=== PATIENT | male | born 1970 | race Caucasian/White ===

== ENCOUNTER → 2023-11-03 06:30 | Day surgery (SDC) | payer OTHER, SELFPAY | LOC: GI 06:30 | PROVIDERS: ATTENDING PHYSICIAN Surgery | DX: R12 Heartburn (principal); R93.3 Abnormal findings on diagnostic imaging of other parts of digestive tract; K44.9 Diaphragmatic hernia without obstruction or gangrene; K22.89 Other specified disease of esophagus | CPT/HCPCS: 43239; 88305 ==

== ENCOUNTER 2023-12-22 17:00 | Inpatient (IN) | payer OTHER, SELFPAY ==
--- NOTE | 2023-12-11 11:23 | CM ---
Patient is scheduled for a laparoscopic repair paraesophageal hernia with fundoplication on 12/22/23. Spoke with patient prior to surgery via telephone to complete case management assessment and assess for discharge planning needs. Patient reports
that he lives alone in a one story home. There are no steps to enter. He currently functions independently. He has no DME and has never had VN services. He has prescription drug coverage and uses [facility].
PCP is Pilo Lopez
Discussed discharge plans. Patient plans to return home at discharge. He states that if he needs assistance he will go to his ex-'s home in [place]. He has no discharge planning concerns at this time and does not anticipate need for VN.
[2023-12-22] VITALS (15 sets, daily range): BP systolic 88–156; BP diastolic 57–98
[2023-12-22] MEDS: TYLENOL 1000 MG PO (09:00)
[2023-12-22] MEDS: EMEND 40 MG PO (09:00)
[2023-12-22] MEDS: NORMOSOL-R 1000 IV ×2 (09:00→15:58)
[2023-12-22] MEDS: HEPARIN 5000 UNITS SC (09:01)
--- NOTE | 2023-12-22 09:47 | W.SUR.PREOP ---
Pre-Operative Surgical Note
-
I have examined this patient prior to the performance of the scheduled procedure.
The patient's condition is unchanged from the time of the current History and
Physical and the patient is able to undergo the scheduled procedure.
--- NOTE | 2023-12-22 14:41 | W.IMMPOSTOP ---
Surgical Immed Post Op Note
-
Primary Surgeon: Jun Watters MD
Assisting Surgeon: Lee Herrmann MD
Pre-op Diagnosis: Hiatal hernia (type III -paraesophageal)
Post-op Diagnosis: Same
Procedure Performed:
1. Laparoscopic paraesophageal hernia repair with toupet fundoplication
2. EGD
Anesthesia Type: General
Specimen / Cultures: None
Estimated Blood Loss: 7 cc
Complications: None
Operative Findings: 5 cm hiatal hernia reduced. Sac excised. Greater than 3 cm intra-abdominal esophageal length achieved. Anterior and posterior vagus nerves identified and preserved. The crural defect was approximated using two
Markell-pledgeted 0 silk sutures and one non-pledgeted 0 silk suture. A posterior 270 fundoplication was performed after ligation of the short gastrics using six 2-0 silk sutures. An EGD was performed which identified some mild gastritis in the
antrum and a well situated fundoplication.
POST OP PLAN:
Imaging: None
Labs: Routine AM
Diet: Clears.
Analgesia: Liquid Tylenol 650mg q6 Kofi, liquid Delma 5mg q6 PRN, IV Dilaudid 0.5mg q2h PRN
Neuro/vascular checks: q4h
AC/AP: Hold Therapeutic AC, Ok for DVT PPx
Activity: Ad Teri
Wound/Incisions/Drains: Routine
Abx: None
Dispo: RNF, anticipate discharge home tomorrow.
[2023-12-22] MEDS: DILAUDID 0.5 MG IV (14:58)
[2023-12-22] MEDS: DILAUDID 0.25 MG IV (15:19)
[2023-12-22] MEDS: TORADOL 10 MG IV ×2 (15:19→20:56)
[2023-12-22] MEDS: ZOFRAN 4 MG IV (17:15)
--- NOTE | 2023-12-22 17:34 | PTCARENOTE ---
pt admitted to room 2119 from the PACU at 1650. pt arrived via bed, awake and alert. oriented to room, call capellan, bed controls and plan of care with verbalized understanding. admission database and assessment completed as documented. c/o nausea
on arrival and medicated w/IV Zofran per DEC. pt also provided mouth swabs. will observe.
[2023-12-22] MEDS: TYLENOL ORAL SOLUTION PO (18:30)
[2023-12-22 19:22] LABS: Hematocrit 35.4 % (39.0-52.0); Hemoglobin 10.7 g/dL (13.0-18.0); Mean Corp Hgb Conc. 30.2 g/dL (33.0-37.0); Mean Corpuscular Hgb 24.4 pg (27.0-31.0); Mean Corpuscular Volume 80.6 fL (80.0-94.0); Mean Platelet Volume 10.2 fL (7.4-10.4); Platelet Count 299 10^3/uL (130-400); Red Blood Cell Count 4.39 10^6/uL (4.70-6.10); Red Cell Dist. Width 14.6 % (11.5-14.5); White Blood Cell Count 19.5 10^3/uL (4.8-10.8)
[2023-12-22] MEDS: LOVENOX 40 MG SC (20:55)
[2023-12-22] MEDS: LOPRESSOR 12.5 MG PO (20:55)
--- NOTE | 2023-12-22 20:55 | PTCARENOTE ---
Received telephone call from Dr. Watters after reading EKG results; confirmed current BP 126/89, HR 118; Dr. Watters requested that I confirm with patient his home medication Metoprolol 12.5mg daily and if he took dose this a.m.; patient confirmed
dose and taken at 06:00; informed Dr. Watters and received a telephone order for an additional Metoprolol 12.5mg PO x1 now; written order sent to pharmacy; Metoprolol 12.5 administered at 20:55.
[2023-12-23] MEDS: TYLENOL ORAL SOLUTION 650 MG PO ×5 (00:03→23:03)
[2023-12-23 03:28] VITALS: BP 111/76
[2023-12-23] MEDS: TORADOL 10 MG IV ×4 (03:37→20:56)
[2023-12-23 05:13] LABS: % Basophils 0.1 % (0-2); % Eosinophils 0.1 % (0-6); % Immature Granulocytes 0.5 % (0-0.5); % Lymphocytes 10.8 % (20.5-51.1); % Monocytes 8.7 % (1.7-9.3); % Neutrophils 79.8 % (42.2-75.2); Absolute Immature Granulocytes 0.1 10^3/uL (0-0.05); Absolute Lymphocytes 1.6 10^3/uL (1.2-3.4); Absolute Monocytes 1.3 10^3/uL (0.1-0.6); Absolute Neutrophils 11.7 10^3/uL (1.4-6.5); Hematocrit 33.5 % (39.0-52.0); Hemoglobin 10.1 g/dL (13.0-18.0); Mean Corp Hgb Conc. 30.1 g/dL (33.0-37.0); Mean Corpuscular Hgb 24.5 pg (27.0-31.0); Mean Corpuscular Volume 81.1 fL (80.0-94.0); Mean Platelet Volume 10.6 fL (7.4-10.4); Nucleated Red Blood Cells % 0 % (-); Platelet Count 282 10^3/uL (130-400); Red Blood Cell Count 4.13 10^6/uL (4.70-6.10); Red Cell Dist. Width 14.9 % (11.5-14.5); White Blood Cell Count 14.6 10^3/uL (4.8-10.8)
[2023-12-23 05:44] LABS: Blood Urea Nitrogen 31 mg/dl (9-20); Calcium 8.2 mg/dl (8.4-10.2); Carbon Dioxide 28 mmol/L (22-30); Chloride 96 mmol/L (98-107); Estimated Creatinine Clearance 98 ml/min; Glucose 117 mg/dl (70-99); Potassium 4.2 mmol/L (3.5-5.1); Sodium 136 mmol/L (135-145); eGFR > 60.00
[2023-12-23] MEDS: NORMOSOL-R 1000 IV ×2 (05:57→17:45)
[2023-12-23 07:40] VITALS: BP 111/76
[2023-12-23] MEDS: LOPRESSOR 12.5 MG PO (08:56)
--- NOTE | 2023-12-23 10:04 | CM ---
Reviewed the chart notes and spoke with the patient at the bedside. The patient resides in a one story home with one step to enter. The patient reports no DME/VN/SNF in the past. The patient confirmed his pharmacy of choice is [facility]
[place]. CM continues to be available to patient/family and is monitoring medical plan for needs at discharge.
Plan: Discharge to home when medically stable. No needs anticipated.
[2023-12-23 10:50] VITALS: BP 106/74
--- NOTE | 2023-12-23 14:15 | W.PN.GS2 ---
Today's Communication / Plan
-
Full code diet.
Anticipate discharge home tomorrow.
Assessment / Plan
-
This is a 53-year-old male postoperative day 1 from a laparoscopic paraesophageal hernia repair and EGD. Doing well, expected postoperative course.
Will advance to a full liquid diet which he will be on for 1 week.
Continue current pain and antinausea regimen.
Given current degree of nausea anticipate home tomorrow.
Time Spent
Total Time Spent with Patient (in minutes): 20
Subjective Data
-
Date of Service: December 23, 2023
Interval Events:
No acute events overnight. Slept well. Pain Controlled. Endorses some nausea but no vomiting, +bowel function. Tolerating diet.
Objective Data
-
Intake and Output
12/22/23 12/23/23 12/24/23
06:59 06:59 06:59
Intake Total 780 / 780
Output Total 910 / 910
Balance -130 / -130
Intake:
Oral fluids 480 / 480
IV fluids (Total) 300 / 300
normosol 300 / 300
IV piggybacks 0 / 0
Output:
Urine, Baer 610 / 610
Urine, Voided 300 / 300
Vital Signs
Temp Pulse Resp BP Pulse Ox
98.3 F 102 18 106/74 93
12/23/23 10:50 12/23/23 10:50 12/23/23 10:50 12/23/23 10:50 12/23/23 10:50
Lab Results
12/23/23 03:39
12/23/23 03:39
Calcium 8.2 mg/dl (8.4-10.2) L 12/23/23 03:39
Physical Exam
-
GENERAL/NEURO: Awake, Alert, no distress
CHEST: Unlabored breathing on RA
ABDOMEN: Soft, Non-Tender, Non-Distended, incisions clean dry and intact.
[2023-12-23 16:12] VITALS: BP 127/80
[2023-12-23] MEDS: LOVENOX 40 MG SC (17:33)
[2023-12-23] MEDS: ZOFRAN 4 MG IV ×2 (17:35→23:03)
[2023-12-23 19:45] VITALS: BP 133/87
--- NOTE | 2023-12-23 20:00 | PTCARENOTE ---
patient received in bed, AAOx3, complaints of abdominal 'bloating'. SInus Tachycardia on monitor, afebrile, blood pressure as documented. No edema noted. Lungs diminished bilaterally, fine crackles bibasilar, pulse ox 93% on room air. IS
encouraged. Abdomen softly distended, with positive bowel sounds, + flatus. Tolerating 50% of full liquid diet. Voiding without difficulty. Ambulation encouraged. both PIVs flushed and patent with IVf infusing as ordered. Plan of care
discussed.
[2023-12-23 23:30] VITALS: BP 119/78
[2023-12-24] VITALS (7 sets, daily range): BP systolic 113–152; BP diastolic 70–91
--- NOTE | 2023-12-24 03:19 | W.PN.UPDATE ---
Update Note
Progress Note Update
Patient complained of generalized abdominal pain rated 7/10 of pain scale described as aching, patient had a small BM yesterday morning. One exam, abdomen is distended, soft, slightly tender to touch only where is the incision sites and hypoactive
bowel sound on exam. vital signs within normal limit.
Abdominal x-ray ordered.
[2023-12-24] MEDS: MYLICON 80 MG PO ×2 (03:21→10:25)
[2023-12-24] MEDS: DILAUDID 0.5 MG IV ×2 (03:30→17:44)
--- NOTE | 2023-12-24 03:38 | PTCARENOTE ---
Patient continues to complain of 'bloating' and 'pressure' in abdomen. Abdominal exam unchanged- softly distended, tender to palpation at incision sites. Continues to pass flatus with each void. Notified house INTERMEDIATE CARD TENDER, orders received, medicated with
prn dilaudid for 7/10 pain.
[2023-12-24] MEDS: ZOFRAN 4 MG IV ×4 (05:53→23:25)
[2023-12-24] MEDS: TYLENOL ORAL SOLUTION 650 MG PO (06:00)
[2023-12-24] MEDS: NORMOSOL-R 1000 IV (06:01)
[2023-12-24 06:46] LABS: % Basophils 0.5 % (0-2); % Immature Granulocytes 0.5 % (0-0.5); % Lymphocytes 19.9 % (20.5-51.1); % Monocytes 7.4 % (1.7-9.3); % Neutrophils 65.7 % (42.2-75.2); Absolute Basophils 0.1 10^3/uL (0-0.2); Absolute Eosinophils 0.6 10^3/uL (0-0.7); Absolute Immature Granulocytes 0.1 10^3/uL (0-0.05); Absolute Monocytes 0.8 10^3/uL (0.1-0.6); Absolute Neutrophils 6.6 10^3/uL (1.4-6.5); Hematocrit 29.7 % (39.0-52.0); Mean Corp Hgb Conc. 30.3 g/dL (33.0-37.0); Mean Corpuscular Hgb 24.7 pg (27.0-31.0); Mean Corpuscular Volume 81.4 fL (80.0-94.0); Mean Platelet Volume 11.1 fL (7.4-10.4); Nucleated Red Blood Cells % 0 % (-); Platelet Count 218 10^3/uL (130-400); Red Blood Cell Count 3.65 10^6/uL (4.70-6.10); Red Cell Dist. Width 14.8 % (11.5-14.5); White Blood Cell Count 10.1 10^3/uL (4.8-10.8)
[2023-12-24] MEDS: LOPRESSOR 12.5 MG PO (08:30)
[2023-12-24] MEDS: ROXICODONE ORAL SOLUTION 5 MG PO (08:34)
--- NOTE | 2023-12-24 08:56 | W.PN.GS2 ---
Today's Communication / Plan
-
`
Assessment / Plan
-
Assessment: 53-year-old male POD#2 from a laparoscopic paraesophageal hernia repair with toupee fundo and EGD.
AF-stable sinus tachy 100-110 since OR (preop -98)
WBC normalized
suspect mild ileus but abx xray overnight without large degree of gastric or SB distention
Plan: continue multimodal pain control options
encourage OOBTC and ambulation/IS use
full liquid diet for comfort - cautioned to go slow and avoid if nausea or worsening distention
continue IVFs
metoprolol
Subjective Data
-
Date of Service: December 24, 2023
pt seen and examined
c/o bloating/distention/fullness
pain at surgical sites
not passing much flatus yet
Objective Data
-
Intake and Output
12/23/23 12/24/23 12/25/23
06:59 06:59 06:59
Intake Total 780 / 780 1440 / 1440
Output Total 910 / 910
Balance -130 / -130 1440 / 1440
Intake:
Oral fluids 480 / 480 1440 / 1440
IV fluids (Total) 300 / 300
normosol 300 / 300
IV piggybacks 0 / 0
Output:
Urine, Baer 610 / 610
Urine, Voided 300 / 300
Other:
Number of approximated SMALL 1
amounts of urine
Number of approximated MODERATE 2
amounts of urine
Vital Signs
Temp Pulse Resp BP Pulse Ox
98.3 F 108 18 139/88 99
12/24/23 07:55 12/24/23 08:30 12/24/23 07:55 12/24/23 08:30 12/24/23 07:55
Lab Results
12/24/23 05:00
12/23/23 03:39
Calcium 8.2 mg/dl (8.4-10.2) L 12/23/23 03:39
Physical Exam
-
NAD AAOx3
ABD: softly protuberant but not overly distended, not much tympany and no LUQ succussion splash
TTP at incision sites, incisions with glue dressings
[2023-12-24] MEDS: TYLENOL ORAL SOLUTION PO (12:41)
[2023-12-24] MEDS: D5/0.9% SODIUM CHLORIDE 1000 IV ×2 (13:38→23:38)
--- NOTE | 2023-12-24 13:53 | PTCARENOTE ---
Pt with 11 beat run Vtach, asymptomatic, VSS. Dr Herrmann notified. Care ongoing at this time.
[2023-12-24] MEDS: LOPRESSOR 55 MG IV ×2 (14:03→20:20)
[2023-12-24 16:09] LABS: Urine Albumin Negative (Neg - Trace); Urine Bilirubin Negative (Negative); Urine Character Clear (Clear); Urine Color Yellow; Urine Glucose Negative (Negative); Urine Ketone Trace (Negative); Urine Leukocyte Negative (Negative); Urine Nitrite Negative (Negative); Urine Occult Blood Negative (Negative); Urine Specific Gravity 1.015 (<1.030); Urine Urobilinogen Negative (Neg - 1+)
--- NOTE | 2023-12-24 16:24 | CM ---
met with patient at bedside,pod #2 sp lap hernia repair,having less pain after he passed some gas,ambulating,starting full liquids,tentative dc home with no need tomorrow.
Plan:home with no needs..
[2023-12-24] MEDS: LOVENOX 40 MG SC (17:42)
[2023-12-24] MEDS: OFIRMEV 100 IV ×2 (17:45→23:04)
[2023-12-25] MEDS: LOPRESSOR 55 MG IV ×4 (02:16→19:54)
[2023-12-25 02:46] VITALS: BP 125/82
[2023-12-25] MEDS: OFIRMEV 100 IV ×2 (04:06→10:51)
[2023-12-25] MEDS: ZOFRAN 4 MG IV ×4 (05:48→23:19)
[2023-12-25 06:25] LABS: Hematocrit 30.1 % (39.0-52.0); Hemoglobin 8.9 g/dL (13.0-18.0); Mean Corp Hgb Conc. 29.6 g/dL (33.0-37.0); Mean Corpuscular Hgb 24.2 pg (27.0-31.0); Mean Corpuscular Volume 81.8 fL (80.0-94.0); Mean Platelet Volume 10.7 fL (7.4-10.4); Platelet Count 210 10^3/uL (130-400); Red Blood Cell Count 3.68 10^6/uL (4.70-6.10); Red Cell Dist. Width 14.7 % (11.5-14.5); White Blood Cell Count 11.6 10^3/uL (4.8-10.8)
[2023-12-25 06:44] LABS: Blood Urea Nitrogen 15 mg/dl (9-20); Calcium 8.1 mg/dl (8.4-10.2); Carbon Dioxide 27 mmol/L (22-30); Chloride 104 mmol/L (98-107); Estimated Creatinine Clearance > 125 ml/min; Glucose 98 mg/dl (70-99); Potassium 3.9 mmol/L (3.5-5.1); Sodium 136 mmol/L (135-145); eGFR > 60.00
[2023-12-25 07:16] VITALS: BP 124/75
--- NOTE | 2023-12-25 07:50 | W.PN.GS2 ---
Addendum entered and electronically signed by Jun Watters MD 12/25/23 10:46:
I saw and examined the patient independently.
The Mastic Floor Layer's note was reviewed and I agree with the note, assessment and plan except where noted below.
Comment: 53-year-old male postoperative day 3 from a laparoscopic paraesophageal hernia repair with toupet fundoplication/EGD with nausea and 'bloating sensation'. Persistent sinus tachycardia.
Pain control, avoid narcotics.
Simethicone ordered.
Upper GI today with small bowel follow-through Omnipaque.
Will consult cards for assistance in management of his sinus tachycardia (he does take a 12.5 mg metoprolol once daily at baseline)
Okay to resume full liquid diet pending upper GI results.
Original Note:
Today's Communication / Plan
-
continue NPO
Assessment / Plan
-
Assessment: 53-year-old male POD#3 from a laparoscopic paraesophageal hernia repair with toupee fundo and EGD.
AF-stable sinus tachy 100-110 since OR (preop -98)
WBC normalized
12/23 abx xray without large degree of gastric or SB distention
suspect mild ileus
Plan: continue multimodal pain control options
encourage OOBTC and ambulation/IS use
NPO
continue IVFs
continue IV metoprolol
scheduled zofran with prn compazine for nausea
lovenox 40mg sq for vte ppx
Subjective Data
-
Date of Service: December 25, 2023
Patient seen and examined at bedside. Denies significant discomfort. Nausea overnight, no vomiting. Passing some flatus, no BM as of yet.
Objective Data
-
Intake and Output
12/24/23 12/25/23 12/26/23
06:59 06:59 06:59
Intake Total 1440 / 1440 2190 / 2190
Balance 1440 / 1440 2189
Intake:
Oral fluids 1440 / 1440 560 / 560
IV fluids (Total) 1319
IV piggybacks 310 / 310
Other:
Number of approximated SMALL 1
amounts of urine
Number of approximated MODERATE 2 2
amounts of urine
Vital Signs
Temp Pulse Resp BP Pulse Ox
98.6 F 101 16 124/75 92
12/25/23 07:16 12/25/23 07:16 12/25/23 07:16 12/25/23 07:16 12/25/23 07:16
Lab Results
12/25/23 05:12
12/25/23 05:12
Calcium 8.1 mg/dl (8.4-10.2) L 12/25/23 05:12
Physical Exam
-
NAD AAOx3
ABD: softly protuberant, mild distention
TTP at incision sites, incisions with glue dressings
[2023-12-25] MEDS: D5/0.9% SODIUM CHLORIDE 1000 IV ×3 (09:10→23:50)
[2023-12-25] MEDS: MYLICON 80 MG PO ×3 (11:03→23:18)
[2023-12-25 12:00] VITALS: BP 156/106
--- NOTE | 2023-12-25 12:27 | OR.RPT ---
Operative Report
Operative Report
Patient Name: Kwabena Guillen
: 1970
Date of Operation: 12/22/2023
Preoperative Diagnosis: Hiatal Hernia (Type III)
Postoperative Diagnosis: Same
Procedure(s):
Laparoscopic Paraesophageal Hernia Repair with Toupet Fundoplication
EGD
Surgeon(s):
Dr. Watters
Transportation Lead(s):
Lee Herrmann MD
SUSAN Gupta
Anesthesia: General
Estimated Blood Loss: 7 cc
Urine Output: None
Drains/Lines/Implants: None
Specimens:
None
HPI/Surgical Indications:
This is a 53-year-old male who presented to our office with mild dysphagia, GERD and found to have a Type III Hiatal hernia on UGI, and EGD. Exam, labs and imaging are consistent with a symptomatic hiatal hernia. Risks/Benefits/Alternatives were
discussed at length, and the patient agreed to proceed with surgery.
Findings:
The patient was noted to have a 5 cm hiatal hernia. Sac excised. Greater than 3 cm intra-abdominal esophageal length achieved. Anterior and posterior vagus nerves identified and preserved. The crural defect was approximated using 2 interrupted
Markell-pledgeted 0 silk sutures and 1 interrupted non-pledgeted 0 silk suture. A posterior 270 fundoplication was performed after ligation of the short gastrics using six 2-0 silk sutures. An EGD was performed which identified a well situated
fundoplication.
Procedure Description:
The patient was brought to the Operating Room and GETA was induced. A ramirez catheter was placed and the patient was then placed in the supine, split-leg position, arms tucked, with all pressure-points padded. The abdomen was prepped and draped in
the usual sterile fashion and team time-out was performed confirming SCDs were on and functioning and that appropriate pre-operative antibiotics and DVT prophylaxis had been given. The abdomen was entered using a left subcostal Veress technique
followed by a left periumbilical 11 mm Optiview trochar roughly 13cm inferior to the xiphoid. Pneumoperitoneum to 15 mmHg pressure was obtained without difficulty and we confirmed that no injury had occurred during our entry. The patient was
positioned in steep reverse Trendelenberg. Three (3) 5mm trocars were then placed along the upper abdomen and an 11 mm trocar was placed in the left subcostal region. A triangular liver retractor was introduced through the right most lateral port
and used to elevate the left lobe of the liver. The hiatal hernia was readily visible with the proximal one quarter of the stomach herniated up in the chest, this was reduced into the abdomen. We then began working on the right alicia at '9 o'clock'
by opening up the pars flaccida no replaced left hepatic was identified. The peritoneal reflection line was identified and incised in the crural muscle fibers were identified. We then carried this dissection in a clockwise fashion to the '3
o'clock' position. We then returned back to the right alicia and carried our dissection down to the '6 o'clock' position. We then turned our attention to the short gastrics which were ligated using harmonic energy device. We carried this to the
diaphragm and carefully peeled the fundus off of the diaphragm. There we continued from her previous dissection at '3 o'clock' and worked inferiorly to the retroesophageal fat pad. A window was then created posterior to the esophagus and a Delavan
drain was wrapped around and tied with an Endoloop. While my assistant operator placed the esophagus on gentle traction I was able to complete our posterior dissection and the posterior vagus was identified. We then worked on obtaining good intra-abdominal
esophageal length using blunt dissection with the occasional short bursts of ultrasound cautery to divide the attachments of the esophagus from the surrounding tissues. Dr. Herrmann scrubbed in for this portion onwards of the case as no other
qualified assistant operator was available. The pleura on both sides as well as the anterior and posterior vagii were identified and preserved throughout the case. Once we were satisfied with our intra-abdominal esophageal length (greater than 3 cm) we
worked to approximate our crural defect using 2 interrupted Markell-pledgeted 0 silk sutures and 1 interrupted non-pledgeted 0 silk suture. Care was taken to ensure the pledgets lay on the lateral aspects of the crura and were not in contact with
the esophagus. Satisfied with our crural repair, the hernia sac was excised. During manipulation of the stomach, a small serosal tear was identified on the posterior wall of the stomach which was oversewn using a [id number] 2-0 silk suture.
The angle of His was identified in the fundus was passed posteriorly around the esophagus and a shoeshine maneuver was performed. A floppy, 2.5 cm posterior 270 degree fundoplication was performed using three (3) 2-0 silk sutures on each side of
the esophagus. Care was taken not to ensnare the anterior vagus nerve which was identified and preserved throughout its entire course. An EGD was then performed which demonstrated the wrap was in good position and the stomach was desufflated. The
liver tractor was removed and we confirmed no injury to the liver had occurred. The left upper quadrant periumbilical 11 mm port was closed with a single interrupted 0 PDS using a Kervin Mohr. The remaining ports were removed under
visualization and the pneumoperitoneum was evacuated. All trocar sites were closed at the skin level using 4-0 Monocryl followed by Dermabond. Overall, the patient tolerated the procedure well and was taken to the Recovery Room postoperatively in
stable condition.
I was the attending physician and performed the procedure with assistance from the PA above as well as Dr. Herrmann who was instrumental in providing tension counter tension, as well as tissue handling during the critical portions of the dissection.
He also performed the EGD scope while I assessed the stomach intraoperatively. I was present for all portions of the case.
Jun Watters MD
[2023-12-25] MEDS: PROTONIX 40 MG PO (13:06)
--- NOTE | 2023-12-25 13:49 | CON.CAR ---
Addendum entered and electronically signed by Forest Cason MD 12/25/23 15:09:
53 yo male with PMH of RBBB, HTN is admitted following hernia repair. We are consulted for tachycardia. Patient denies CP, palps. Exam with RRR, no murmurs, no edema.
Tele: brief NSVT 11 beats 12/23, 1343. EKG: NSR, RBBB.
Sinus tachycardia. Likely in setting of poor PO intake, pain.
NSVT. Replete K. Check echo. Continue IV lopressor, and transition to PO when able.
Original Note:
Consultation
Consultation Request
Date/Time Consultation Requested: 12/25/23 1213
Date/Time Consultation Performed: 12/25/23 1330
Requesting Provider: Fiorella Abreu
Performing Provider: Manisha ROMERO for Dr. Cason
Reason for Consultation: tachycardia
Medical History
-
Chief Complaint: hernia
History of Present Illness:
53 y/o male with hypertension, dyslipidemia, former tobacco, and RBBB who is here for management of his hiatal hernia and is now s/p laparoscopic paraesophageal hernia repair with toupet fundoplication. We are consulted since he is seen to have
persistent sinus tachycardia on the monitor. He does not feel this. He has a history of baseline tachycardia per patient, which is why he is on low dose metoprolol through his PCP, he tells me. He denies any CP or palpitations. He was seen in our
cardiology office last year and had a normal echo. Stress test was ordered, but he got busy and never had it done.
Past Medical History
Past Medical History: HTN, Hypercholesterolemia and Other (RBBB)
Social History
Tobacco: Former Smoker
Alcohol: None
Family History
Family History: Hypertension (mom)
Allergies / Home Medications
Allergy/AdvReac Type Severity Reaction Status Date / Time
No Known Allergies Allergy Verified 12/22/23 08:40
Medication Instructions Recorded Confirmed Type
cyclobenzaprine 10 mg tablet 10 mg PO PRN PRN MUSCLE PAIN 06/11/22 12/22/23 History
esomeprazole magnesium 40 mg 40 mg PO DAILY 06/11/22 12/22/23 History
capsule,delayed release (Nexium)
hydrochlorothiazide 25 mg tablet 25 mg PO DAILY 06/11/22 12/22/23 History
metoprolol succinate 25 mg capsule 12.5 mg PO DAILY 06/11/22 12/22/23 History
sprinkle, ext. release 24 hr
olmesartan 40 mg tablet 40 mg PO DAILY 06/11/22 12/22/23 History
Review of Systems
-
History Source: Patient
All other systems: Negative unless noted
Abdomen/GI: Other (abdominal bloating/discomfort)
Physical Exam
Vital Signs
Temp Pulse Resp BP Pulse Ox
98.9 F 102 17 156/106 94
12/25/23 12:00 12/25/23 12:00 12/25/23 12:00 12/25/23 12:00 12/25/23 12:00
Lab Results
12/25/23 05:12
12/25/23 05:12
Physical Exam
General: Well Developed, Well Nourished and No Apparent Distress
HEENT: Normocephalic and Anicteric
Respiratory: Clear and Non Labored Respirations
Cardiac: Regular Rhythm
Neuro: AO x 3
Psych: Calm
Impression / Plan
-
Hiatal hernia s/p laparoscopic paraesophageal hernia repair 12/22/23:
-post-op management per surgery
Sinus tachycardia:
-currently 100's
-on review of patient chart, HR runs on faster side at baseline and now he is s/p surgery with some discomfort, anemia, nausea/NPO (though getting fluids), so likely all a factor
-treat pain as able (I note that avoiding narcotics due to patient hx)
-continue IV metoprolol, which requires intensive monitoring- when consistently taking PO can adjust from IV to PO
NSVT:
-yesterday had an asymptomatic run (11 beats). K+ 3.9- will replace.
-last year's echo normal, repeat now
-will add on mag- replace if low
-OP stress test not yet done, reassess after recovery
-no chest pain or palps
-continue BB as above
HTN:
-on ARB, HCTZ, and BB as OP
-monitor post-op
RBBB: chronic, stable
Data Reviewed
-
EKG: Tracing Personally Visualized and interpreted (ST 108 BPM, RBBB)
Radiology: Report Reviewed by me (GI Xray 12/25/23: There are enlarged gastric folds/hyperrugosity such as may be seen with gastritis The study is otherwise normal)
Medical Tests (Nuc Med, Echo etc): Report Reviewed by me (echo 11/28/22: normal echo)
Labs: Labs Reviewed by me
[2023-12-25] MEDS: KCL 160 MEQ IV (15:00)
[2023-12-25 15:04] LABS: Magnesium 2.2 mg/dl (1.6-2.3)
[2023-12-25] MEDS: DILAUDID 0.5 MG IV ×2 (15:29→23:17)
[2023-12-25 16:00] VITALS: BP 136/89
--- NOTE | 2023-12-25 16:26 | CM ---
met with patient at bedside.sp hernia repair on 12/21,afib stable,has mild abd distention/suspect ileus per md,npo,ivf,iv metoprolol,lovenox sq.
plan is home with no needs when stable.
[2023-12-25] MEDS: LOVENOX 40 MG SC (17:35)
[2023-12-25] MEDS: TOPROL XL 12.5 MG PO (17:44)
[2023-12-25 19:45] VITALS: BP 133/84
[2023-12-25 23:35] VITALS: BP 157/95
[2023-12-26] MEDS: LOPRESSOR 55 MG IV (02:31)
[2023-12-26 03:30] VITALS: BP 146/84
[2023-12-26] MEDS: ZOFRAN 4 MG IV ×2 (05:38→17:22)
[2023-12-26] MEDS: ROXICODONE ORAL SOLUTION 5 MG PO ×2 (05:42→17:24)
[2023-12-26 08:03] VITALS: BP 130/57
[2023-12-26] MEDS: TOPROL XL 12.5 MG PO (09:27)
[2023-12-26] MEDS: PROTONIX 40 MG PO (09:27)
[2023-12-26] MEDS: MYLICON 80 MG PO ×3 (09:33→23:09)
[2023-12-26] MEDS: LOPRESSOR IV (09:35)
--- NOTE | 2023-12-26 11:22 | W.PN.CD ---
Today's Communication / Plan
-
continue Toprol XL
trend tele
Impression / Plan
-
53 yo male with PMH of RBBB, HTN is admitted following hernia repair.� We are consulted for tachycardia.�
# Sinus tachycardia. Likely in setting of poor PO intake, pain.
-improved
-now back on PO metoprolol: continue
# NSVT: none in last 24 hrs
-potassium repleted
-echo 12/24: normal LVEF
-cont Toprol XL
-outpatient stress test
# HTN:
-on ARB, HCTZ, and BB as OP
-monitor post-op
# RBBB: chronic, stable
Physical Exam
Vital Signs/Labs
Vital Signs
Temp Pulse Resp BP Pulse Ox
98.7 F 103 16 130/57 93
12/26/23 08:03 12/26/23 08:03 12/26/23 08:03 12/26/23 08:03 12/26/23 08:03
12/25/23 05:12
12/25/23 05:12
Magnesium 2.2 mg/dl (1.6-2.3) 12/25/23 05:12
Physical Exam
Constitutional: No acute distress and Comfortable
EENT: Moist mucous membranes
Cardiovascular: Rhythm & rate is regular, Pedal edema is absent, JVD pressure is normal and Systolic murmur absent
Respiratory: Respiratory effort normal, Lungs clear to auscul. and Wheeze Absent
GI: Soft, Distention absent and Flat
Neuro/Psych: AO x 3
Data Reviewed
-
Date of Service: December 26, 2023
EKG: Other (Tele: SR/ST 90s-100s)
Echo: Report Reviewed by me (per note)
Labs: Labs Reviewed by me
[2023-12-26] MEDS: ZOFRAN IV ×2 (12:52→23:54)
--- NOTE | 2023-12-26 13:06 | W.PN.GS2 ---
Today's Communication / Plan
-
Full liquid diet
Antiemetics
Assessment / Plan
-
Assessment: 53-year-old male POD#4 from a laparoscopic paraesophageal hernia repair with toupee fundo and EGD.
AFVSS- tachycardia in low 100's
Echo with nl EF.
12/24 UGI without abnormal passage of contrast
Plan: continue multimodal pain control options
encourage OOBTC and ambulation/IS use
Continue full liquid diet with plan to transition to GI soft diet 5-7 days post op
D/C IVF
Appreciate cardiac recs, back on PO metoprolol.
Scheduled zofran with prn Compazine for nausea
lovenox 40mg sq for vte ppx
Tentative d/c tomorrow pending patient course
Subjective Data
-
Date of Service: December 26, 2023
Patient seen and examined at bedside with Dr. Gracia at bedside. Nausea improving as is feeling of distention/bloating. Pain lessening. Passed stool and flatus this am.
Objective Data
-
Intake and Output
12/25/23 12/26/23 12/27/23
06:59 06:59 06:59
Intake Total 2189
Balance 2189 / 2189
Intake:
Oral fluids 560 / 560 480 / 480
IV fluids (Total) 1320 / 1320 1570 / 1570
IV piggybacks 310 / 310
Other:
Number of approximated MODERATE 2 2
amounts of urine
Number of approximated LARGE 1
amounts of urine
Vital Signs
Temp Pulse Resp BP Pulse Ox
98.7 F 103 16 130/57 93
12/26/23 08:03 12/26/23 08:03 12/26/23 08:03 12/26/23 08:03 12/26/23 08:03
Lab Results
12/25/23 05:12
12/25/23 05:12
Calcium 8.1 mg/dl (8.4-10.2) L 12/25/23 05:12
Magnesium 2.2 mg/dl (1.6-2.3) 12/25/23 05:12
Physical Exam
-
NAD AAOx3
ABD: softly protuberant, mild distention
TTP at incision sites, incisions with glue dressings
[2023-12-26] MEDS: D5/0.9% SODIUM CHLORIDE IV (15:13)
[2023-12-26 16:03] VITALS: BP 142/84
[2023-12-26] MEDS: LOVENOX 40 MG SC (17:21)
[2023-12-26 19:20] VITALS: BP 179/101
[2023-12-26] MEDS: LOPRESSOR 5 MG IV (23:15)
--- NOTE | 2023-12-26 23:25 | PTCARENOTE ---
sravan BLUE SPLIT TRIMMER, Patricia ROMERO, notified of patient's elevated BP. 170's/100. HR in 90's to low 100's at rest. Patient asymptomatic, no c/o pain. IV lopressor ordered and administered. care on going.
[2023-12-27 00:11] VITALS: BP 173/111
[2023-12-27 00:12] VITALS: BP 146/91
[2023-12-27] MEDS: ROXICODONE ORAL SOLUTION 5 MG PO ×2 (03:12→08:45)
[2023-12-27 03:25] VITALS: BP 158/88
[2023-12-27] MEDS: ZOFRAN IV ×2 (06:04→12:45)
[2023-12-27 07:40] VITALS: BP 147/90
[2023-12-27] MEDS: PROTONIX 40 MG PO (08:41)
[2023-12-27] MEDS: TOPROL XL 12.5 MG PO (08:41)
[2023-12-27] MEDS: MYLICON 80 MG PO (08:45)
[2023-12-27 10:59] VITALS: BP 163/116
--- NOTE | 2023-12-27 11:56 | W.PN.CRS1 ---
Today's Communication / Plan
-
discharge
Assessment/Plan
-
Assessment: 53-year-old male POD#5 from a laparoscopic paraesophageal hernia repair with toupee fundo and EGD.
Plan: � continue multimodal pain control options
encourage OOBTC and ambulation/IS use
Continue IDDS6 diet with small bites
Appreciate cardiac recs, back on PO metoprolol.
Scheduled zofran with prn Compazine for nausea
lovenox 40mg sq for vte ppx
Okay for d/c today. Discussed with patient who is in agreement.
Subjective Data
Subjective Data
Date of Service: December 27, 2023
Patient states he feels a little better. He is eating and less tender. He has no nausea or vomiting.
Objective Data
-
Vital Signs
Temp Pulse Resp BP Pulse Ox
98.4 F 112 18 163/116 92
12/27/23 10:59 12/27/23 10:59 12/27/23 10:59 12/27/23 10:59 12/27/23 10:59
Intake & Output
12/26/23 12/27/23 12/28/23
06:59 06:59 06:59
Intake Total 2049 1230 / 1230
Balance 2049 1230 / 1230
Intake:
Oral fluids 480 / 480 1230 / 1230
IV fluids (Total) 1570 / 1570
Other:
Number of approximated MODERATE 2 2
amounts of urine
Number of approximated LARGE 1
amounts of urine
Lab Results
12/25/23 05:12
12/25/23 05:12
Physical Exam
-
General: No Acute Distress and AOx3
Abdomen: Soft, Non Distended and Non Tender
Skin: Warm and Dry
--- NOTE | 2023-12-27 12:07 | W.DS.TRANS ---
Addendum entered and electronically signed by HEATHER Franco 12/28/23 12:36:
dictated #[id number]
Addendum entered and electronically signed by Ingrid Anthony PA-C 12/27/23 12:59:
Stop:
esomeprazole magnesium 40 mg capsule,delayed release (Nexium) 40 mg PO DAILY 06/11/22
Original Note:
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
-
Discharge Instructions:
Sleep Apnea Risk Intermediate
Discharge Diagnosis/Procedures Hiatal hernia. Laparoscopic paraesophageal
hernia repair
Diet Other diet
Additional Diets Eat a soft diet with small meals for the next 1-
2 weeks. Supplement with protein shakes as
needed
Activity No strenuous activity
Driving Restrictions As prior to admission
Bathing Restrictions OK to Shower
Instructions:
Stand-Alone Forms:
Changes to Home Medications: Yes
Discharge Medications:
DC Medications w/original date entered in Message Missile
cyclobenzaprine 10 mg tablet 10 mg PO PRN PRN MUSCLE PAIN 06/11/22
esomeprazole magnesium 40 mg capsule,delayed release (Nexium) 40 mg PO DAILY 06/11/22
hydrochlorothiazide 25 mg tablet 25 mg PO DAILY 06/11/22
metoprolol succinate 25 mg capsule sprinkle, ext. release 24 hr 12.5 mg PO DAILY 06/11/22
olmesartan 40 mg tablet 40 mg PO DAILY 06/11/22
oxycodone 5 mg tablet 5 mg PO Q6H PRN Pain #20 tabs 12/27/23
Home Medication Changes
oxycodone 5 mg tablet 5 mg PO Q6H PRN Pain #20 tabs 12/27/23
Pending Results: No
--- NOTE | 2023-12-27 12:30 | CM ---
Reviewed the chart notes. The patient is being discharged to home today with no needs. The patient's family will provide transportation home. CM continues to be available to patient/family and is monitoring medical plan for needs at discharge.
Plan: Discharge to home with no needs identified.
--- NOTE | 2023-12-27 13:40 | W.PN.CD ---
Today's Communication / Plan
-
resume home olmesartan and HCTZ
Impression / Plan
-
53 yo male with PMH of RBBB, HTN is admitted following hernia repair.� We are consulted for tachycardia.�
# Sinus tachycardia. Likely in setting of poor PO intake, pain.
-improved
-now back on PO metoprolol: continue
# NSVT: none in last 24 hrs
-potassium repleted
-echo 12/24: normal LVEF
-cont Toprol XL
-outpatient stress test
# HTN:
-resume home olmesartan and HCTZ
# RBBB: chronic, stable
Physical Exam
Vital Signs/Labs
Vital Signs
Temp Pulse Resp BP Pulse Ox
98.4 F 112 18 163/116 92
12/27/23 10:59 12/27/23 10:59 12/27/23 10:59 12/27/23 10:59 12/27/23 10:59
12/25/23 05:12
12/25/23 05:12
Magnesium 2.2 mg/dl (1.6-2.3) 12/25/23 05:12
Physical Exam
Constitutional: No acute distress and Comfortable
EENT: Moist mucous membranes
Cardiovascular: Rhythm & rate is regular, Pedal edema is absent, JVD pressure is normal and Systolic murmur absent
Respiratory: Respiratory effort normal, Lungs clear to auscul. and Wheeze Absent
GI: Soft
Neuro/Psych: AO x 3
Data Reviewed
-
Date of Service: December 27, 2023
EKG: Other (Tele: SR 90s-100s)
Labs: Labs Reviewed by me
--- NOTE | 2023-12-27 14:09 | PTCARENOTE ---
Patient blood pressure around 1100 was 163/110. Ingrid Anthony PA-C and Dr. Cason made aware. Patient instructed to take BP medications when he gets home. Okayed for discharge.
== END 2023-12-27 13:15 | disposition home or self-care (01) | DRG 327 ==
LOC: 2 SOUTH 17:00
PROVIDERS: Surgery; ADMITTING PHYSICIAN Surgery; CONSULT PHYSICIAN Internal Medicine; FAMILY PHYSICIAN Family Medicine
PROC: 0BQT4ZZ Repair Diaphragm, Percutaneous Endoscopic Approach (ICD-10-PCS; 2023-12-22)
PROC: 0DV44ZZ Restriction of Esophagogastric Junction, Percutaneous Endoscopic Approach (ICD-10-PCS; 2023-12-22)
DX: K44.9 Diaphragmatic hernia without obstruction or gangrene (principal); I47.20 Ventricular tachycardia, unspecified; K29.70 Gastritis, unspecified, without bleeding; R13.10 Dysphagia, unspecified; I45.10 Unspecified right bundle-branch block; I10 Essential (primary) hypertension; E78.00 Pure hypercholesterolemia, unspecified; D64.9 Anemia, unspecified; R11.0 Nausea; Z87.891 Personal history of nicotine dependence
CPT/HCPCS: 36415; 71045; 74018; 74022; 74240; 74248; 80048; 81003; 83735; 85025; 85027; 93005; 93306

== ENCOUNTER → 2024-03-29 07:04 | Outpatient (REF) | payer OTHER, SELFPAY | LOC: RCS 07:04 | PROVIDERS: ATTENDING PHYSICIAN Nurse Practitioner; FAMILY PHYSICIAN Family Medicine | DX: I45.10 Unspecified right bundle-branch block (principal); I10 Essential (primary) hypertension; I47.29 Other ventricular tachycardia; R00.0 Tachycardia, unspecified | CPT/HCPCS: 78452; 93017; A9500 ==

== ENCOUNTER → 2024-08-11 07:00 | Outpatient (REF) | payer OTHER, SELFPAY | LOC: HWRAD 07:00 | PROVIDERS: ATTENDING PHYSICIAN Family Medicine | DX: R14.0 Abdominal distension (gaseous) (principal); R14.1 Gas pain | CPT/HCPCS: 74018; 76700 ==

== ENCOUNTER 2025-02-17 06:24 | Day surgery (SDC) | payer OTHER, SELFPAY | END 2025-02-17 13:32 | disposition home or self-care (01) | LOC: GI 06:24 | PROVIDERS: ATTENDING PHYSICIAN Internal Medicine Gastroenterology | DX: R19.4 Change in bowel habit (principal); K57.30 Diverticulosis of large intestine without perforation or abscess without bleeding; K64.8 Other hemorrhoids; R10.9 Unspecified abdominal pain; K22.89 Other specified disease of esophagus; K29.70 Gastritis, unspecified, without bleeding; D12.5 Benign neoplasm of sigmoid colon; K20.90 Esophagitis, unspecified without bleeding; Z98.890 Other specified postprocedural states | CPT/HCPCS: 45385; 45380; 43239; 88305; 88342 ==

== ENCOUNTER → 2025-05-15 14:14 | Outpatient (REF) | payer OTHER, SELFPAY | LOC: RAD 14:14 | PROVIDERS: ATTENDING PHYSICIAN Internal Medicine Gastroenterology; FAMILY PHYSICIAN Family Medicine | DX: R14.0 Abdominal distension (gaseous) (principal) | CPT/HCPCS: 74177; Q9967 ==